=== PATIENT | male | born 1955 ===

== ENCOUNTER 2016-12-10 16:45 | Emergency (ER) | payer OTHER ==
[~2016-12-10] VITALS: Ht 170.2 cm; Wt 104.5 kg
[~2016-12-10 16:45] MED LIST: ASPI81TA3 PO; ATEN100T PO; LISI40TA PO
[2016-12-10 17:09] VITALS: BP 163/84; RESP 17; O2SAT 95
--- NOTE | 2016-12-10 17:47 | DRSVH ---
PROCEDURE: X-RAY CHEST, TWO VIEWS ([id number]) INDICATIONS: cough TECHNIQUE: 2 views of the chest were acquired. COMPARISON: [facility], CR, XR CHEST 1VW (PORTABLE), 01/01/2016, 6:10. FINDINGS: Surgical changes and devices: None. Lungs and pleura: No pleural effusions or pneumothorax. Lungs are clear. Mediastinum: Mediastinal contours are normal. Heart size is normal. Bones and chest wall: No suspicious bony abnormalities. Soft tissues appear unremarkable. IMPRESSION: No acute pulmonary process. Dictated by: Jill Rasheed M.D. on 12/10/2016 at 17:45 Approved by: Jill Rasheed M.D. on 12/10/2016 at 17:45
--- NOTE | 2016-12-10 18:47 | ED.REPORT ---
HPI-General Illness Date of Service Dec 10, 2016 ED Provider: Bao Bertrand MD 61 y/o male on Aspirin and with a hx of CAD, A-fib and diabetes presents to the ED complaining of sore throat, onset 5 days ago. The pt describes it as a sandpaper-like feeling inside his throat. He has been having difficulty sleeping due to the pain. Associated sx include subjective fever, sinus pressure , ear pain and intermittent coughing which worsens when laying down. He denies any other sx including nausea, vomiting, diarrhea and rash.His rapid strep test in the ED is negative. Nursing Notes Stated Complaint: SORE THROAT Chief Complaint: ENT & Mouth Nursing Notes Reviewed: Yes Allergies: Coded Allergies: No Known Allergies (Unverified Allergy, Unknown, 01/01/16) Scheduled Aspirin Chew (Aspirin Chew) 81 Mg Chew 81 MG PO DAILY Atenolol (Atenolol) 100 Mg Tablet 100 MG PO DAILY Lisinopril (Lisinopril) 40 Mg Tablet 40 MG PO DAILY General Time Seen by MD: 18:46 Chief Complaint Sore throat Hx Obtained From: Patient Arrived By: Walk-in Sudden in Onset?: Yes Onset Occurred: 5 days ago Symptom Duration: Since onset Quality: Painful Radiation: : Does not radiate Severity: Current: Mild Severity: Maximum: Mild Recent Healthcare: No recent doctor visit Similar Sx Previous: No Past Medical History Past Medical History SD approximately 10 years ago Hx of afib Reports: Coronary artery disease, Diabetes mellitus, Hyperlipidemia, Hypertension Past Surgical History none reported Smoking History Never Smoker Social History Alcohol Use: 1-3 per week Drug Use: Denies drug use Other Social History: Good social support, Ambulatory Status Independent Review of Systems Reports: sinus pressure Full Review of Systems Constitutional: Reports: Fever (subjective) Ears / Nose / Throat: Reports: Earache bilateral, Sore throat Respiratory: Reports: Non-productive cough (intermittent) GI: Denies: Diarrhea, Nausea, Vomiting Skin: Denies Rash Complete sys rev & neg: except as marked. Physical Exam Vital Signs Vital Signs Date Time Temp Pulse Resp B/P Pulse Ox O2 Delivery O2 Flow Rate FiO2 12/10/16 19:58 36.7 79 17 149/79 95 Room Air 12/10/16 17:09 36.7 85 17 163/84 95 Room Air Initial VS: Reviewed Head / Eyes: Atraumatic, Normocephalic ENT: Mucous membranes moist, Conjunctiva normal, No scleral icterus Neck: Supple, Non-tender, Full range of motion Respiratory: Breath sounds normal, Clear to auscultation, No respiratory distress Cardiovascular: Regular rate & rhythm, Heart sounds normal, Intact distal pulses Extremities: Vascular intact, Neuro intact, No swelling, No tenderness Skin: Warm, Dry, No cyanosis Neurologic: Alert, Oriented, Nonfocal General/Constitutional: Awake, Alert, No acute distress, Well appearing, Cooperative Interpretation & Diagnostics Lab Results Interpretation Lab Results Interpretation: Rapid Strep Test = negative X-Ray Chest Interpretation Chest Xray Interpretation: IMPRESSION: No acute pulmonary process. Dictated by: Jill Rasheed M.D. on 12/10/2016 at 17:45 Approved by: Jill Rasheed M.D. on 12/10/2016 at 17:45 View: Portable, AP & lat Interpretation / Wet Read by: Interpret - Radiologist Re-Eval/Medical Decision Time of Eval: 18:55 Re-Evaluation/Progress Note: Rechecked pt. Discussed imaging results, diagnosis and plan to discharge. Pt understands and agrees with the plan. F/U instructions and RTER warning given. All questions addressed. Counseled Regarding: Diagnosis, Need for follow-up, When/why to return to ED Discharge & Departure Primary Impression: Pharyngitis Pharyngitis/tonsillitis etiology: unspecified etiology Qualified Code: J02.9 - Acute pharyngitis, unspecified Additional Impressions: Cough Sinusitis Sinusitis location: sphenoidal Chronicity: acute Recurrence: not specified as recurrent Qualified Code: J01.30 - Acute sphenoidal sinusitis, unspecified Disposition: Home Discharge Condition All VS Reviewed: Yes Condition: Stable Patient Instructions: Sinusitis (ED) Additional Instructions: Thank you for entrusting us with your care today. Your lab results are reassuring. Your rapid stre-test in the ED was also normal. No dangerous cause of your symptoms is found today. Chest x-ray was also normal. Drink lots of fluids and stay hydrated. Use Neti-pod for nasal irrigation 3 or 4 times throughout the day and Sudafed as needed as a decongestant, avoid antihistamines such as diphenhydramine or Claritin. You can also use Tylenol if needed for the pain. Call Dr. Moraes on Sunday to schedule an appointment later this week for further evaluation if needed. Referrals: Rodri Moraes MD (PCP) Scribe Attestation Portions of this note were transcribed by Jane Mejia. I,, personally performed the history, physical exam and medical decision-making;I reviewed and confirmed the accuracy of the information in the transcribed note. Signed by Rosalba Pineda. 12/10/16 22:34 copies to: Rodri Moraes MD, Kirk H MD Dec 10, 2016 18:47 Jane Mejia Dec 10, 2016 18:55
[2016-12-10 19:58] VITALS: BP 149/79; PULSE 79; RESP 17; O2SAT 95
== END 2016-12-10 19:38 | disposition home or self-care (01) ==
LOC: SED 16:45
DX: J02.9 Acute pharyngitis, unspecified (principal); J01.30 Acute sphenoidal sinusitis, unspecified; I11.9 Hypertensive heart disease without heart failure; I25.10 Atherosclerotic heart disease of native coronary artery without angina pectoris; I25.2 Old myocardial infarction; I48.91 Unspecified atrial fibrillation; E11.59 Type 2 diabetes mellitus with other circulatory complications; E78.5 Hyperlipidemia, unspecified; Z79.82 Long term (current) use of aspirin